=== PATIENT | female | born 1950 | race Caucasian/White ===

== ENCOUNTER 2016-05-19 14:04 | Emergency (ER) | payer OTHER ==
[2016-05-19] MEDS ORDERED: MORPHINE 4 MG/ML 1ML SYRINGE As Ordered ONE (14:34)
[2016-05-19] MEDS ORDERED: ONDANSETRON 4MG/2ML VIAL (J2405) As Ordered ONE (14:34)
[2016-05-19] MEDS ORDERED: KETOROLAC 30 MG/ML VIAL (J1885) As Ordered ONE (14:44)
--- NOTE | 2016-05-19 14:44 | REP ---
Clinical: Renal colic. Findings: Acute moderate right-sided obstructive uropathy with edematous enlargement to the kidney, perinephric stranding, hydroureteronephrosis and periureteral stranding is secondary to a 4 mm calculus at the ureterovesicle junction (images 119 - 120). Few nonobstructing bilateral renal calculi are identified measuring up to approximately 3 mm in the right kidney and 2 mm in the left kidney. Liver, spleen, pancreas, gallbladder, and bilateral adrenal glands are normal for noncontrast evaluation. The enteric system is without obstruction or acute inflammatory process and a normal terminal ileum and appendix is identified in the right lower quadrant. Pelvis demonstrates normal bladder and evidence for prior hysterectomy. The intramuscular lipoma is identified in the left gluteal measuring 8 x 5 x 5 cm. No ascites. No adenopathy. No free air. Abdominal aorta without aneurysm. Osseous structures intact. Lung bases clear. Impression: 1. Acute moderate right-sided obstructive uropathy with a 4 mm calculus at the right ureterovesical junction. Bilateral nonobstructing renal calculi. 2. 8 cm lipoma in the left gluteal region. Signed by Mark Capellan MD 05/19/2016 02:35 P
--- NOTE | 2016-05-19 16:38 | EDDOCDS ---
Nurse's Notes [facility] Name: Razia Feliz Age: 65 yrs Sex: Female : 1950 Arrival Date: 05/19/2016 Time: 14:04 Bed I5 / M5 Private MD: Violet Cade L. Diagnosis: Calculus of lower urinary tract, unspecified-4 mm right UVJ Presentation: 05/19 14:07 Presenting complaint: Patient states: right sided flank pain started at 5pm last night. ttb Sent over from . Denies v/d/ symptoms. Some nausea. Acute neurological deficits are not present. Mechanism of Injury: No Mechanism of Injury. Adult Sepsis Screening: The patient does not have new or worsening altered mentation. Patient's respiratory rate is less than 22. Systolic blood pressure is greater than 100. Patient has a qSOFA score of 0- Negative Sepsis Screen. Suicide/Homicide risk assessment- the patient denies having any suicidal and/or homicidal ideations and does not present with any other emotional, behavioral or mental health complaints. Status: Patient is not a electrical service technician or dependent. Transition of care: patient was not received from another setting of care. 14:07 Acuity: YAYA Level 3 ttb 14:07 Method Of Arrival: Walkin/Carried/Asstd ttb Triage Assessment: 14:11 General: Appears in no apparent distress, well nourished, well groomed, Behavior is ttb appropriate for age, cooperative, pleasant. Pain: Location: right flank 8/10. Pt Declines HIV testing. Neurological: Level of Consciousness is awake, alert. Cardiovascular: Chest pain is denied. Respiratory: No deficits noted. Airway is patent Denies cough, shortness of breath. GI: Reports nausea, Denies vomiting. : Denies burning with urination, urinary frequency, urgency. Derm: Skin is normal. Musculoskeletal: Range of motion intact in all extremities. Historical: - Allergies: No known drug Allergies; - Home Meds: 1. Crestor 10 mg Oral tab 1 tab once daily (Last dose: 05/19/2016 07:00) 2. Tylenol 325 mg Oral tab 2 tabs every 4-6 hours (Last dose: 05/19/2016 10:30) - PMHx: kidney stones approx 10 years ago; Hypercholesterolemia; - PSHx: partial thyroidectomy; Hysterectomy; heel spur surgery; - Social history: Smoking status: Patient states was never smoker of tobacco. Patient uses alcohol on a daily basis. Patient/guardian denies using street drugs, No barriers to communication noted, The patient speaks fluent Guatemalan, Speaks appropriately for age. - Family history: Not pertinent. - : The pt / caregiver states he / she is not on anticoagulants. Home medication list is obtained from the patient. - Exposure Risk Screening:: None identified. Screenin:54 Screening information is obtained from the patient. Fall risk: No risks identified. dy Assistance ADL's: requires no assistance with activities of daily living. Abuse/DV Screen: The patient / caregiver reports he/she is: not in a situation that causes fear, pain or injury. Nutritional screening: No deficits noted. Advance Directives: There is no active DNR order. home support is adequate. Assessment: 14:30 General: Appears uncomfortable, Behavior is appropriate for age, cooperative. dy 14:30 Pain: Location: right flank Pain currently is 8 out of 10 on a pain scale. dy Neurological: No deficits noted. Respiratory: Airway is patent Respiratory effort is even, unlabored, Breath sounds are clear bilaterally. Derm: Skin is pink, warm & dry. 15:15 General: Appears in no apparent distress, comfortable, Behavior is appropriate for age, dy cooperative. Pain: Location: right flank Pain currently is 2 out of 10 on a pain scale. 16:32 Reassessment: Patient appears in no apparent distress at this time. Patient denies pain rs3 at this time. Patient states feeling better. Patient states symptoms have improved. General: Appears in no apparent distress, Behavior is appropriate for age, cooperative. Vital Signs: 14:05 BP 182 / 104; Pulse 89; Resp 16; Temp 97.4(O); Pulse Ox 99% on R/A; Weight 69.4 kg (R); lr2 Height 5 ft. 2 in. (157.48 cm) (R); Pain 8/10; 15:00 Pain 2/10; dy 15:14 BP 149 / 80; Pulse 80; Resp 16; Temp 98.2(O); Pulse Ox 99% on R/A; Pain 2/10; dy 15:15 Pain 2/10; dy 16:36 BP 130 / 78; Pulse 78; Resp 18; Temp 98(T); Pulse Ox 99% on R/A; Pain 0/10; rs3 14:05 Body Mass Index 27.98 (69.40 kg, 157.48 cm) lr2 Vitals: 14:05 Log In Time: May 19, 2016 at 14:04. lr2 ED Course: 14:05 Patient visited by Bryanna Paulino. lr2 14:05 Violet Cade is Private Physician. lr2 14:05 Patient moved to Waiting lr2 14:07 Patient moved to Pre RCE lr2 14:08 Triage Initiated ttb 14:12 Patient moved to Triage 1 ttb 14:16 [facility] cc10 14:16 Manan Renee MD is Attending Physician. cc10 14:16 Patient visited by Cameron Sanchez PA-C. cc10 14:16 Patient visited by Cameron Sanchez PA-C. cc10 14:19 Patient moved to I5 / M5 ar3 14:37 Inserted saline lock: 20 gauge in left antecubital area The patient tolerated the dy procedure well. 14:42 The patient / caregiver is instructed regarding the plan of care and ED course. Patient dy has correct armband on for positive identification. Placed in gown. Bed in low position. Call light in reach. 14:47 CT ABD & PELVIS: No Contrast Returned. EDMS 14:55 Patient visited by Morgan López, RN. dy 15:15 Patient visited by Morgan López, RN. dy 15:32 Jefferson Yañez is Referral Physician. cc10 16:19 [facility] Payment Agreement was scanned into [employer] and attached to record. zo 16:34 Discontinued lock intact, bleeding controlled, pressure dressing applied, No rs3 redness/swelling at site. No procedures done that require assistance. Administered Medications: 14:39 Drug: Ondansetron 4 mg [ondansetron HCl 2 mg/mL intravenous solution (2 mL)] Route: dy IVP; Site: left antecubital; 14:39 Drug: morphine 4 mg [morphine 4 mg/mL intravenous cartridge (1 mL)] Route: IVP; Site: dy left antecubital; 15:00 Follow up: Pain 2/10 Adult; Response: Pain is decreased dy 14:49 Drug: ketorolac 30 mg [ketorolac 30 mg/mL (1 mL) injection solution (1 mL)] Route: IVP; dy Site: left antecubital; 15:15 Follow up: Pain 2/10 Adult; Response: Pain is decreased dy 14:49 Drug: NS 0.9% 1000 ml [sodium chloride 0.9 % injection solution] Route: IV; Rate: dy bolus; Site: left antecubital; 16:32 Follow up: IV Status: Completed infusion rs3 Order Results: Radiology Order: CT ABD & PELVIS: No Contrast Test: CT ABD & PELVIS: No Contrast REASON FOR EXAMINATION: Renal colic; Clinical: Renal colic.; ; Findings:; Acute moderate right-sided obstructive uropathy with edematous enlargement to the; kidney, perinephric stranding, hydroureteronephrosis and periureteral stranding; is secondary to a 4 mm calculus at the ureterovesicle junction (images 119 -; 120). Few nonobstructing bilateral renal calculi are identified measuring up to; approximately 3 mm in the right kidney and 2 mm in the left kidney.; ; Liver, spleen, pancreas, gallbladder, and bilateral adrenal glands are normal for; noncontrast evaluation. The enteric system is without obstruction or acute; inflammatory process and a normal terminal ileum and appendix is identified in; the right lower quadrant. Pelvis demonstrates normal bladder and evidence for; prior hysterectomy. The intramuscular lipoma is identified in the left gluteal; measuring 8 x 5 x 5 cm. No ascites. No adenopathy. No free air. Abdominal; aorta without aneurysm. Osseous structures intact. Lung bases clear.; ; Impression:; 1. Acute moderate right-sided obstructive uropathy with a 4 mm calculus at the; right ureterovesical junction. Bilateral nonobstructing renal calculi.; 2. 8 cm lipoma in the left gluteal region.; ; ; Signed by; Mark Capellan MD 05/19/2016 02:35 P; Outcome: 15:32 Discharge ordered by Provider. cc10 16:33 Discharge Assessment: patient administered narcotics - yes. The following High Risk rs3 Discharge criteria are identified: None. Condition: stable. Discharge instructions given to patient, Instructed on discharge instructions, follow up and referral plans. medication usage, Demonstrated understanding of instructions, medications, Pt was receptive of discharge instructions/ teaching. Prescriptions given X 3. No special radiology studies were completed. Property :Personal belongings accompany Pt. 16:36 Patient left the ED. rs3 Signatures: Dispatcher [employer] EDMS Morgan López, RN RN Lucila Haines Rosemary, RN RN rs3 Lelo Reddy, NUTRITION FACULTY MEMBER NUTRITION FACULTY MEMBER ar3 Rebecca Carrillo RN RN Cameron Kuo PA-C PA-C cc10 Bryanna Paulino2 MTDD
--- NOTE | 2016-05-19 16:38 | EDDOCDS ---
Physician Documentation [facility] Name: Razia Feliz Age: 65 yrs Sex: Female : 1950 Arrival Date: 05/19/2016 Time: 14:04 Bed I5 / M5 Private MD: Violet Cade L. Disposition: 05/19/16 15:32 Discharged to Home/Self Care. Impression: Calculus of lower urinary tract, unspecified - 4 mm right UVJ. - Condition is Stable. - Discharge Instructions: Kidney Stones. - Prescriptions for Naprosyn 500 mg Oral Tablet - take 1 tablet by ORAL route 2 times per day take with food; 30 tablet. Ultram 50 mg Oral Tablet - take 1 tablet by ORAL route every 6 hours As needed MDD: 4 tabs; 20 tablet. ZOFRAN ODT 4 mg - dissolve 1 tablet by ORAL route 4 times per day As needed do not chew, do not swallow whole; 10 tablet. - Medication Reconciliation form. - Follow up: Jefferson Yañez; When: Call to arrange an appointment; Reason: Wound/Symptom Recheck, Recheck today's complaints, Worsening of conditions, Continuance of care. - Problem is an ongoing problem. - Symptoms have improved. Historical: - Allergies: No known drug Allergies; - Home Meds: 1. Crestor 10 mg Oral tab 1 tab once daily (Last dose: 05/19/2016 07:00) 2. Tylenol 325 mg Oral tab 2 tabs every 4-6 hours (Last dose: 05/19/2016 10:30) - PMHx: kidney stones approx 10 years ago; Hypercholesterolemia; - PSHx: partial thyroidectomy; Hysterectomy; heel spur surgery; - Social history: Smoking status: Patient states was never smoker of tobacco. Patient uses alcohol on a daily basis. Patient/guardian denies using street drugs, No barriers to communication noted, The patient speaks fluent Portuguese, Speaks appropriately for age. - Family history: Not pertinent. - : The pt / caregiver states he / she is not on anticoagulants. Home medication list is obtained from the patient. - Exposure Risk Screening:: None identified. Vital Signs: 05/19 14:05 BP 182 / 104; Pulse 89; Resp 16; Temp 97.4(O); Pulse Ox 99% on R/A; Weight 69.4 kg / lr2 153 lbs (R); Height 5 ft. 2 in. (157.48 cm) (R); Pain 8/10; 15:00 Pain 2/10; dy 15:14 BP 149 / 80; Pulse 80; Resp 16; Temp 98.2(O); Pulse Ox 99% on R/A; Pain 2/10; dy 15:15 Pain 2/10; dy 16:36 BP 130 / 78; Pulse 78; Resp 18; Temp 98(T); Pulse Ox 99% on R/A; Pain 0/10; rs3 14:05 Body Mass Index 27.98 (69.40 kg, 157.48 cm) lr2 MDM: 14:20 Undress patient appropriately for examination ordered. cc10 14:21 CT ABD & PELVIS: No Contrast Ordered. EDMS 14:21 NOTHING BY MOUTH+DIET ordered. EDMS 14:27 IV Saline Lock ordered. cc10 14:27 Ondansetron 4 mg IVP once ordered. cc10 14:27 morphine 4 mg IVP once ordered. cc10 14:38 ketorolac 30 mg IVP once ordered. cc10 14:38 NS 0.9% 1000 ml IV at bolus once ordered. cc10 15:31 CT ABD & PELVIS: No Contrast Reviewed. cc10 16:16 Financial registration complete. zo 16:19 [facility] [place] Payment Agreement was scanned into [employer] and attached to record. zo Administered Medications: 14:39 Drug: Ondansetron 4 mg [ondansetron HCl 2 mg/mL intravenous solution (2 mL)] Route: dy IVP; Site: left antecubital; 14:39 Drug: morphine 4 mg [morphine 4 mg/mL intravenous cartridge (1 mL)] Route: IVP; Site: dy left antecubital; 15:00 Follow up: Pain 2/10 Adult; Response: Pain is decreased dy 14:49 Drug: ketorolac 30 mg [ketorolac 30 mg/mL (1 mL) injection solution (1 mL)] Route: IVP; dy Site: left antecubital; 15:15 Follow up: Pain 2/10 Adult; Response: Pain is decreased dy 14:49 Drug: NS 0.9% 1000 ml [sodium chloride 0.9 % injection solution] Route: IV; Rate: dy bolus; Site: left antecubital; 16:32 Follow up: IV Status: Completed infusion rs3 Signatures: Dispatcher [employer] EDLucila Viera Rosemary, RN RN rs3 Rebecca Carrillo RN RN ttb Cameron Sanchez, PA-C PA-C cc10 Morgan López RN dy The chart was reviewed and I authenticate all verbal orders and agree with the evaluation and treatment provided.Corrections: (The following items were deleted from the chart) 15:33 14:52 URINALYSIS+LAB ordered. EDMS EDMS Attachments: 16:19 [facility] Payment Agreement zo MTDD
--- NOTE | 2016-05-21 17:38 | EDDOCDS ---
Physician Documentation [facility] Name: Razia Feliz Age: 65 yrs Sex: Female : 1950 Arrival Date: 05/19/2016 Time: 14:04 Bed I5 / M5 Private MD: Violet Cade L. Disposition: 05/19/16 15:32 Discharged to Home/Self Care. Impression: Calculus of lower urinary tract, unspecified - 4 mm right UVJ. - Condition is Stable. - Discharge Instructions: Kidney Stones. - Prescriptions for Naprosyn 500 mg Oral Tablet - take 1 tablet by ORAL route 2 times per day take with food; 30 tablet. Ultram 50 mg Oral Tablet - take 1 tablet by ORAL route every 6 hours As needed MDD: 4 tabs; 20 tablet. ZOFRAN ODT 4 mg - dissolve 1 tablet by ORAL route 4 times per day As needed do not chew, do not swallow whole; 10 tablet. - Medication Reconciliation form. - Follow up: Jefferson Yañez; When: Call to arrange an appointment; Reason: Wound/Symptom Recheck, Recheck today's complaints, Worsening of conditions, Continuance of care. - Problem is an ongoing problem. - Symptoms have improved. Historical: - Allergies: No known drug Allergies; - Home Meds: 1. Crestor 10 mg Oral tab 1 tab once daily (Last dose: 05/19/2016 07:00) 2. Tylenol 325 mg Oral tab 2 tabs every 4-6 hours (Last dose: 05/19/2016 10:30) - PMHx: kidney stones approx 10 years ago; Hypercholesterolemia; - PSHx: partial thyroidectomy; Hysterectomy; heel spur surgery; - Social history: Smoking status: Patient states was never smoker of tobacco. Patient uses alcohol on a daily basis. Patient/guardian denies using street drugs, No barriers to communication noted, The patient speaks fluent Faroese, Speaks appropriately for age. - Family history: Not pertinent. - : The pt / caregiver states he / she is not on anticoagulants. Home medication list is obtained from the patient. - Exposure Risk Screening:: None identified. Vital Signs: 05/19 14:05 BP 182 / 104; Pulse 89; Resp 16; Temp 97.4(O); Pulse Ox 99% on R/A; Weight 69.4 kg / lr2 153 lbs (R); Height 5 ft. 2 in. (157.48 cm) (R); Pain 8/10; 15:00 Pain 2/10; dy 15:14 BP 149 / 80; Pulse 80; Resp 16; Temp 98.2(O); Pulse Ox 99% on R/A; Pain 2/10; dy 15:15 Pain 2/10; dy 16:36 BP 130 / 78; Pulse 78; Resp 18; Temp 98(T); Pulse Ox 99% on R/A; Pain 0/10; rs3 14:05 Body Mass Index 27.98 (69.40 kg, 157.48 cm) lr2 MDM: 14:20 Undress patient appropriately for examination ordered. cc10 14:21 CT ABD & PELVIS: No Contrast Ordered. EDMS 14:21 NOTHING BY MOUTH+DIET ordered. EDMS 14:27 IV Saline Lock ordered. cc10 14:27 Ondansetron 4 mg IVP once ordered. cc10 14:27 morphine 4 mg IVP once ordered. cc10 14:38 ketorolac 30 mg IVP once ordered. cc10 14:38 NS 0.9% 1000 ml IV at bolus once ordered. cc10 15:31 CT ABD & PELVIS: No Contrast Reviewed. cc10 16:16 Financial registration complete. zo 16:19 [facility] Payment Agreement was scanned into [employer] and attached to record. zo 02 09:51 T-Sheet-- Draft Copy was scanned into [employer] and attached to record. gb Administered Medications: 05/19 14:39 Drug: Ondansetron 4 mg [ondansetron HCl 2 mg/mL intravenous solution (2 mL)] Route: dy IVP; Site: left antecubital; 14:39 Drug: morphine 4 mg [morphine 4 mg/mL intravenous cartridge (1 mL)] Route: IVP; Site: dy left antecubital; 15:00 Follow up: Pain 2/10 Adult; Response: Pain is decreased dy 14:49 Drug: ketorolac 30 mg [ketorolac 30 mg/mL (1 mL) injection solution (1 mL)] Route: IVP; dy Site: left antecubital; 15:15 Follow up: Pain 2/10 Adult; Response: Pain is decreased dy 14:49 Drug: NS 0.9% 1000 ml [sodium chloride 0.9 % injection solution] Route: IV; Rate: dy bolus; Site: left antecubital; 16:32 Follow up: IV Status: Completed infusion rs3 Signatures: Dispatcher [employer] EDMaty Bell, Emil Reg gb Lucila Hernandez Rosemary, RN RN rs3 Rebecca Carrillo RN RN ttb Cameron Sanchez PA-C PADoug cc10 Morgan López RN dy The chart was reviewed and I authenticate all verbal orders and agree with the evaluation and treatment provided.Corrections: (The following items were deleted from the chart) 15:33 14:52 URINALYSIS+LAB ordered. EDMS EDMS Attachments: 16:19 [facility] Agreement zo 05/20 09:51 T-Sheet-- Draft Copy gb Chart Complete MTDD
--- NOTE | 2016-05-21 17:38 | EDDOCDS ---
Nurse's Notes [facility] Name: Razia Feliz Age: 65 yrs Sex: Female : 1950 Arrival Date: 05/19/2016 Time: 14:04 Bed I5 / M5 Private MD: Violet Cade L. Diagnosis: Calculus of lower urinary tract, unspecified-4 mm right UVJ Presentation: 05/19 14:07 Presenting complaint: Patient states: right sided flank pain started at 5pm last night. ttb Sent over from . Denies v/d/ symptoms. Some nausea. Acute neurological deficits are not present. Mechanism of Injury: No Mechanism of Injury. Adult Sepsis Screening: The patient does not have new or worsening altered mentation. Patient's respiratory rate is less than 22. Systolic blood pressure is greater than 100. Patient has a qSOFA score of 0- Negative Sepsis Screen. Suicide/Homicide risk assessment- the patient denies having any suicidal and/or homicidal ideations and does not present with any other emotional, behavioral or mental health complaints. 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 Transition of care: patient was not received from another setting of care. 14:07 Acuity: YAYA Level 3 ttb 14:07 Method Of Arrival: Walkin/Carried/Asstd ttb Triage Assessment: 14:11 General: Appears in no apparent distress, well nourished, well groomed, Behavior is ttb appropriate for age, cooperative, pleasant. Pain: Location: right flank 8/10. Pt Declines HIV testing. Neurological: Level of Consciousness is awake, alert. Cardiovascular: Chest pain is denied. Respiratory: No deficits noted. Airway is patent Denies cough, shortness of breath. GI: Reports nausea, Denies vomiting. : Denies burning with urination, urinary frequency, urgency. Derm: Skin is normal. Musculoskeletal: Range of motion intact in all extremities. Historical: - Allergies: No known drug Allergies; - Home Meds: 1. Crestor 10 mg Oral tab 1 tab once daily (Last dose: 05/19/2016 07:00) 2. Tylenol 325 mg Oral tab 2 tabs every 4-6 hours (Last dose: 05/19/2016 10:30) - PMHx: kidney stones approx 10 years ago; Hypercholesterolemia; - PSHx: partial thyroidectomy; Hysterectomy; heel spur surgery; - Social history: Smoking status: Patient states was never smoker of tobacco. Patient uses alcohol on a daily basis. Patient/guardian denies using street drugs, No barriers to communication noted, The patient speaks fluent Indonesian, Speaks appropriately for age. - Family history: Not pertinent. - : The pt / caregiver states he / she is not on anticoagulants. Home medication list is obtained from the patient. - Exposure Risk Screening:: None identified. Screenin:54 Screening information is obtained from the patient. Fall risk: No risks identified. dy Assistance ADL's: requires no assistance with activities of daily living. Abuse/DV Screen: The patient / caregiver reports he/she is: not in a situation that causes fear, pain or injury. Nutritional screening: No deficits noted. Advance Directives: There is no active DNR order. home support is adequate. Assessment: 14:30 General: Appears uncomfortable, Behavior is appropriate for age, cooperative. dy 14:30 Pain: Location: right flank Pain currently is 8 out of 10 on a pain scale. dy Neurological: No deficits noted. Respiratory: Airway is patent Respiratory effort is even, unlabored, Breath sounds are clear bilaterally. Derm: Skin is pink, warm & dry. 15:15 General: Appears in no apparent distress, comfortable, Behavior is appropriate for age, dy cooperative. Pain: Location: right flank Pain currently is 2 out of 10 on a pain scale. 16:32 Reassessment: Patient appears in no apparent distress at this time. Patient denies pain rs3 at this time. Patient states feeling better. Patient states symptoms have improved. General: Appears in no apparent distress, Behavior is appropriate for age, cooperative. Vital Signs: 14:05 BP 182 / 104; Pulse 89; Resp 16; Temp 97.4(O); Pulse Ox 99% on R/A; Weight 69.4 kg (R); lr2 Height 5 ft. 2 in. (157.48 cm) (R); Pain 8/10; 15:00 Pain 2/10; dy 15:14 BP 149 / 80; Pulse 80; Resp 16; Temp 98.2(O); Pulse Ox 99% on R/A; Pain 2/10; dy 15:15 Pain 2/10; dy 16:36 BP 130 / 78; Pulse 78; Resp 18; Temp 98(T); Pulse Ox 99% on R/A; Pain 0/10; rs3 14:05 Body Mass Index 27.98 (69.40 kg, 157.48 cm) lr2 Vitals: 14:05 Log In Time: May 19, 2016 at 14:04. lr2 ED Course: 14:05 Patient visited by Bryanna Paulino. lr2 14:05 Violet Cade is Private Physician. lr2 14:05 Patient moved to Waiting lr2 14:07 Patient moved to Pre RCE lr2 14:08 Triage Initiated ttb 14:12 Patient moved to Triage 1 ttb 14:16 Cameron [facility] cc10 14:16 Manan Renee MD is Attending Physician. cc10 14:16 Patient visited by Cameron Sanchez PA-C. cc10 14:16 Patient visited by Cameron Sanchez PA-C. cc10 14:19 Patient moved to I5 / M5 ar3 14:37 Inserted saline lock: 20 gauge in left antecubital area The patient tolerated the dy procedure well. 14:42 The patient / caregiver is instructed regarding the plan of care and ED course. Patient dy has correct armband on for positive identification. Placed in gown. Bed in low position. Call light in reach. 14:47 CT ABD & PELVIS: No Contrast Returned. EDMS 14:55 Patient visited by Morgan López, RN. dy 15:15 Patient visited by Morgan López, RN. dy 15:32 Jefferson Yañez is Referral Physician. cc10 16:19 [facility] Payment Agreement was scanned into [employer] and attached to record. zo 16:34 Discontinued lock intact, bleeding controlled, pressure dressing applied, No rs3 redness/swelling at site. No procedures done that require assistance. 05/20 09:51 T-Sheet-- Draft Copy was scanned into [employer] and attached to record. gb Administered Medications: 05/19 14:39 Drug: Ondansetron 4 mg [ondansetron HCl 2 mg/mL intravenous solution (2 mL)] Route: dy IVP; Site: left antecubital; 14:39 Drug: morphine 4 mg [morphine 4 mg/mL intravenous cartridge (1 mL)] Route: IVP; Site: dy left antecubital; 15:00 Follow up: Pain 2/10 Adult; Response: Pain is decreased dy 14:49 Drug: ketorolac 30 mg [ketorolac 30 mg/mL (1 mL) injection solution (1 mL)] Route: IVP; dy Site: left antecubital; 15:15 Follow up: Pain 2/10 Adult; Response: Pain is decreased dy 14:49 Drug: NS 0.9% 1000 ml [sodium chloride 0.9 % injection solution] Route: IV; Rate: dy bolus; Site: left antecubital; 16:32 Follow up: IV Status: Completed infusion rs3 Order Results: Radiology Order: CT ABD & PELVIS: No Contrast Test: CT ABD & PELVIS: No Contrast REASON FOR EXAMINATION: Renal colic; Clinical: Renal colic.; ; Findings:; Acute moderate right-sided obstructive uropathy with edematous enlargement to the; kidney, perinephric stranding, hydroureteronephrosis and periureteral stranding; is secondary to a 4 mm calculus at the ureterovesicle junction (images 119 -; 120). Few nonobstructing bilateral renal calculi are identified measuring up to; approximately 3 mm in the right kidney and 2 mm in the left kidney.; ; Liver, spleen, pancreas, gallbladder, and bilateral adrenal glands are normal for; noncontrast evaluation. The enteric system is without obstruction or acute; inflammatory process and a normal terminal ileum and appendix is identified in; the right lower quadrant. Pelvis demonstrates normal bladder and evidence for; prior hysterectomy. The intramuscular lipoma is identified in the left gluteal; measuring 8 x 5 x 5 cm. No ascites. No adenopathy. No free air. Abdominal; aorta without aneurysm. Osseous structures intact. Lung bases clear.; ; Impression:; 1. Acute moderate right-sided obstructive uropathy with a 4 mm calculus at the; right ureterovesical junction. Bilateral nonobstructing renal calculi.; 2. 8 cm lipoma in the left gluteal region.; ; ; Signed by; Mark Capellan MD 05/19/2016 02:35 P; Outcome: 15:32 Discharge ordered by Provider. cc10 16:33 Discharge Assessment: patient administered narcotics - yes. The following High Risk rs3 Discharge criteria are identified: None. Condition: stable. Discharge instructions given to patient, Instructed on discharge instructions, follow up and referral plans. medication usage, Demonstrated understanding of instructions, medications, Pt was receptive of discharge instructions/ teaching. Prescriptions given X 3. No special radiology studies were completed. Property :Personal belongings accompany Pt. 16:36 Patient left the ED. rs3 Signatures: Dispatcher [employer] EDMS Maty Tran, Reg Reg gb Morgan López, RN RN dy Lucila Hernandez RosemaryRN RN rs3 Lelo Reddy, MICHELE REPLENISHMENT BUYER ar3 Rebecca Carrillo RN RN lulab Cameron Sanchez, PA-C PA-C cc10 Bryanna Paulino lr2 Chart Complete MTDD
--- NOTE | 2016-05-21 17:38 | EDDOCDS ---
Physician Documentation [facility] Name: Razia Feliz Age: 65 yrs Sex: Female : 1950 Arrival Date: 05/19/2016 Time: 14:04 Bed I5 / M5 Private MD: Violet Cade L. Disposition: 05/19/16 15:32 Discharged to Home/Self Care. Impression: Calculus of lower urinary tract, unspecified - 4 mm right UVJ. - Condition is Stable. - Discharge Instructions: Kidney Stones. - Prescriptions for Naprosyn 500 mg Oral Tablet - take 1 tablet by ORAL route 2 times per day take with food; 30 tablet. Ultram 50 mg Oral Tablet - take 1 tablet by ORAL route every 6 hours As needed MDD: 4 tabs; 20 tablet. ZOFRAN ODT 4 mg - dissolve 1 tablet by ORAL route 4 times per day As needed do not chew, do not swallow whole; 10 tablet. - Medication Reconciliation form. - Follow up: Jefferson Yañez; When: Call to arrange an appointment; Reason: Wound/Symptom Recheck, Recheck today's complaints, Worsening of conditions, Continuance of care. - Problem is an ongoing problem. - Symptoms have improved. Historical: - Allergies: No known drug Allergies; - Home Meds: 1. Crestor 10 mg Oral tab 1 tab once daily (Last dose: 05/19/2016 07:00) 2. Tylenol 325 mg Oral tab 2 tabs every 4-6 hours (Last dose: 05/19/2016 10:30) - PMHx: kidney stones approx 10 years ago; Hypercholesterolemia; - PSHx: partial thyroidectomy; Hysterectomy; heel spur surgery; - Social history: Smoking status: Patient states was never smoker of tobacco. Patient uses alcohol on a daily basis. Patient/guardian denies using street drugs, No barriers to communication noted, The patient speaks fluent Macedonian, Speaks appropriately for age. - Family history: Not pertinent. - : The pt / caregiver states he / she is not on anticoagulants. Home medication list is obtained from the patient. - Exposure Risk Screening:: None identified. Vital Signs: 05/19 14:05 BP 182 / 104; Pulse 89; Resp 16; Temp 97.4(O); Pulse Ox 99% on R/A; Weight 69.4 kg / lr2 153 lbs (R); Height 5 ft. 2 in. (157.48 cm) (R); Pain 8/10; 15:00 Pain 2/10; dy 15:14 BP 149 / 80; Pulse 80; Resp 16; Temp 98.2(O); Pulse Ox 99% on R/A; Pain 2/10; dy 15:15 Pain 2/10; dy 16:36 BP 130 / 78; Pulse 78; Resp 18; Temp 98(T); Pulse Ox 99% on R/A; Pain 0/10; rs3 14:05 Body Mass Index 27.98 (69.40 kg, 157.48 cm) lr2 MDM: 14:20 Undress patient appropriately for examination ordered. cc10 14:21 CT ABD & PELVIS: No Contrast Ordered. EDMS 14:21 NOTHING BY MOUTH+DIET ordered. EDMS 14:27 IV Saline Lock ordered. cc10 14:27 Ondansetron 4 mg IVP once ordered. cc10 14:27 morphine 4 mg IVP once ordered. cc10 14:38 ketorolac 30 mg IVP once ordered. cc10 14:38 NS 0.9% 1000 ml IV at bolus once ordered. cc10 15:31 CT ABD & PELVIS: No Contrast Reviewed. cc10 16:16 Financial registration complete. zo 16:19 [facility] Payment Agreement was scanned into [employer] and attached to record. zo 02 09:51 T-Sheet-- Draft Copy was scanned into [employer] and attached to record. gb Administered Medications: 05/19 14:39 Drug: Ondansetron 4 mg [ondansetron HCl 2 mg/mL intravenous solution (2 mL)] Route: dy IVP; Site: left antecubital; 14:39 Drug: morphine 4 mg [morphine 4 mg/mL intravenous cartridge (1 mL)] Route: IVP; Site: dy left antecubital; 15:00 Follow up: Pain 2/10 Adult; Response: Pain is decreased dy 14:49 Drug: ketorolac 30 mg [ketorolac 30 mg/mL (1 mL) injection solution (1 mL)] Route: IVP; dy Site: left antecubital; 15:15 Follow up: Pain 2/10 Adult; Response: Pain is decreased dy 14:49 Drug: NS 0.9% 1000 ml [sodium chloride 0.9 % injection solution] Route: IV; Rate: dy bolus; Site: left antecubital; 16:32 Follow up: IV Status: Completed infusion rs3 Signatures: Dispatcher [employer] EDMaty Bell, Emil Reg gb Lucila Hernandez Rosemary, RN RN rs3 Rebecca Carrillo RN RN ttb Cameron Sanchez PA-C PADoug cc10 Morgan López RN dy The chart was reviewed and I authenticate all verbal orders and agree with the evaluation and treatment provided.Corrections: (The following items were deleted from the chart) 15:33 14:52 URINALYSIS+LAB ordered. EDMS EDMS Attachments: 16:19 [facility] Payment Agreement zo 05/20 09:51 T-Sheet-- Draft Copy gb Chart Complete MTDD
== END 2016-05-19 16:36 | disposition home or self-care (01) ==
LOC: M ED 14:04
DX: D17.1 Benign lipomatous neoplasm of skin and subcutaneous tissue of trunk (principal); N20.1 Calculus of ureter; E78.00 Pure hypercholesterolemia, unspecified; Z87.442 Personal history of urinary calculi; Z90.79 Acquired absence of other genital organ(s); Z90.89 Acquired absence of other organs; Z79.899 Other long term (current) drug therapy
CPT/HCPCS: 74176; 96361; 96374; 96375; 99284; J1885; J2405

== ENCOUNTER → 2016-05-19 | Outpatient (CLI) | payer OTHER ==
--- NOTE | 2016-05-19 10:39 | REP ---
Clinical: Lower abdominal pain. Technique: Single supine view of the abdomen and pelvis. Findings: Bowel gas pattern is nonspecific. No obvious organomegaly. Small calcification in the right kye pelvis likely phleboliths although ureteral calculus cannot be excluded. Impression: Nonspecific bowel gas pattern. Irregular 3 mm phlebolith versus distal right ureteral calculus. Signed by Mark Capellan MD 05/19/2016 10:31 A
[2016-05-19 11:40] LABS: MEAN CORPUSCULAR HEMOGLOBIN 31.4 pg (27.0-33.0); MEAN CORPUSCULAR HGB CONC 33.4 g/dl (32.0-36.5); RED CELL DISTRIBUTION WIDTH 12.8 % (11.5-14.5); WHITE BLOOD COUNT 14.4 K/mm3 (4.0-10.0)
[2016-05-19 12:07] LABS: ALBUMIN 4.9 GM/DL (3.2-5.2); ALBUMIN/GLOBULIN RATIO 1.58 (1.00-1.93); BILIRUBIN,TOTAL 0.6 MG/DL (0.2-1.0); CALCIUM LEVEL 9.6 MG/DL (8.8-10.2); CREATININE FOR GFR 1.21 MG/DL (0.55-1.02); GLOMERULAR FILTRATION RATE 47.8 (>45); POTASSIUM SERUM 4.4 MEQ/L (3.5-5.1)
[2016-05-19 12:09] LABS: BANDS 1 % (< 11); BASOPHILS 1 % (0-4)
[2016-05-19 12:10] LABS: ANISOCYTOSIS 1+
== END ==
LOC: M WUC 09:53
PROVIDERS: ATTEND Physician Assistant
DX: R10.30 Lower abdominal pain, unspecified (principal)

== ENCOUNTER → 2016-12-12 | Outpatient (CLI) | payer OTHER ==
[2016-12-12 15:04] LABS: ALBUMIN/GLOBULIN RATIO 1.21 (1.00-1.93); ALKALINE PHOSPHATASE 109 U/L (45-117); ALT/SGPT 46 U/L (12-78); ANION GAP 6 MEQ/L (8-16); AST/SGOT 29 U/L (15-37); BILIRUBIN,TOTAL 0.4 MG/DL (0.2-1.0); BLOOD UREA NITROGEN 16 MG/DL (7-18); CALCIUM LEVEL 8.8 MG/DL (8.8-10.2); CARBON DIOXIDE LEVEL 27 MEQ/L (21-32); CHLORIDE LEVEL 108 MEQ/L (98-107); CHOLESTEROL LEVEL 225 MG/DL (<200); CREATININE FOR GFR 0.87 MG/DL (0.55-1.02); FREE T4 0.88 NG/DL (0.76-1.46); GLOMERULAR FILTRATION RATE > 60.0 (>45); GLUCOSE, FASTING 92 MG/DL (80-110); POTASSIUM SERUM 4.7 MEQ/L (3.5-5.1); SODIUM LEVEL 141 MEQ/L (136-145); TOTAL PROTEIN 7.3 GM/DL (6.4-8.2); TRIGLYCERIDES LEVEL 251 MG/DL (<150)
== END ==
LOC: M WUC 09:09
PROVIDERS: ATTEND Nurse Practitioner Adult Health
DX: E78.2 Mixed hyperlipidemia (principal); E04.1 Nontoxic single thyroid nodule; E55.9 Vitamin D deficiency, unspecified

== ENCOUNTER → 2017-02-05 | Outpatient (CLI) | payer OTHER | LOC: M LAB 10:20 | PROVIDERS: ATTEND Internal Medicine Gastroenterology | DX: K58.0 Irritable bowel syndrome with diarrhea (principal) ==

== ENCOUNTER → 2017-02-06 | Outpatient (REF) | payer OTHER | LOC: M LAB REF 10:06 | PROVIDERS: ATTEND Internal Medicine Gastroenterology | DX: K58.0 Irritable bowel syndrome with diarrhea (principal) ==

== ENCOUNTER 2017-02-24 08:40 | Day surgery (SDC) | payer OTHER ==
[~2017-02-24] VITALS: Ht 157.5 cm; Wt 71.7 kg
[~2017-02-24 08:40] MED LIST: 5-HT1CAP PO; ASPI1TAB PO; BIOT50004 PO; BUPR150T3 PO; LIDOCAINE 2% INJ 100 MG/5 ML SDV (FOR ANES.) As Ordered ONE; MOVE1TAB PO; PROPOFOL 200 MG/20 ML VIAL As Ordered ONE; ROSU10TA2 PO; VITA500046 PO; [UNRECOGNIZED DRUG - CODE] PO
[2017-02-24] MEDS ORDERED: NS 1,000 ML IV ONE (08:45)
--- NOTE | 2017-02-24 09:51 | ROOR ---
Patient Name: Razia Feliz Procedure Date: 02/24/2017 9:33 AM Date of : 1950 Age: 66 Room: [facility] Gender: Female Note Status: Finalized Procedure: Colonoscopy Indications: Irritable bowel syndrome with diarrhea Providers: Morgan PALMER MD Referring MD: Violet Cade NP Requesting Provider: Medicines: Monitored Anesthesia Care Complications: No immediate complications. Procedure: Pre-Anesthesia Assessment: - The heart rate, respiratory rate, oxygen saturations, blood pressure, adequacy of pulmonary ventilation, and response to care were monitored throughout the procedure. The Colonoscope was introduced through the anus and advanced to 5 cm into the ileum. The colonoscopy was performed without difficulty. The patient tolerated the procedure well. The quality of the bowel preparation was good. Findings: The perianal and digital rectal examinations were normal. The colon (entire examined portion) appeared normal. The terminal ileum appeared normal. Small Internal Hemorrhoids. Biopsies for histology were taken with a cold forceps from the entire colon for evaluation of microscopic colitis. Impression: - The entire colon is normal. - The examined portion of the ileum was normal. - Small Internal Hemorrhoids. - Biopsies were taken with a cold forceps from the entire colon for evaluation of microscopic colitis. - (Irritable Bowel Syndrome/IBS suspected.) Recommendation: - Continue present medications. - Your stool fat content was elevated suggestive of possible excessive small bowel bacteria. I will treat you with Xifaxan for 14 days for Irritable bowel syndrome/Small bowel bacterial overgrowth. - (the script was sent to your pharmacy on file) - Telephone endoscopist for pathology results in 2 weeks. Morgan Palmer MD Morgan PALMER MD 02/24/2017 9:51:27 AM This report has been signed electronically. Number of Addenda: 0 Note Initiated On: 02/24/2017 9:33 AM Estimated Blood Loss: Estimated blood loss: none.
[2017-02-24 10:15] VITALS: BP 162/90
== END 2017-02-24 10:30 | disposition home or self-care (01) ==
LOC: M OPP 08:40
PROVIDERS: ATTEND Internal Medicine Gastroenterology
DX: K58.0 Irritable bowel syndrome with diarrhea (principal); K64.8 Other hemorrhoids; E78.5 Hyperlipidemia, unspecified; Z79.82 Long term (current) use of aspirin; Z79.899 Other long term (current) drug therapy

== ENCOUNTER → 2017-10-09 | Outpatient (CLI) | payer MEDICARE, OTHER ==
[2017-10-09 10:48] LABS: HEMATOCRIT 44.9 % (36.0-47.0); HEMOGLOBIN 14.9 g/dl (12.0-15.5); MEAN CORPUSCULAR HEMOGLOBIN 31.2 pg (27.0-33.0); MEAN CORPUSCULAR HGB CONC 33.2 g/dl (32.0-36.5); MEAN CORPUSCULAR VOLUME 94.1 fl (80.0-96.0); PLATELET COUNT, AUTOMATED 215 10^3/uL (150-450); RED BLOOD COUNT 4.77 10^6/uL (4.00-5.40); RED CELL DISTRIBUTION WIDTH 13.1 % (11.5-14.5); WHITE BLOOD COUNT 6.7 10^3/uL (4.0-10.0)
[2017-10-09 11:23] LABS: TOTAL 25(OH) VITAMIN D 57.7 NG/ML (30.0-100.0)
[2017-10-09 11:27] LABS: ALBUMIN 4.1 GM/DL (3.2-5.2); ALBUMIN/GLOBULIN RATIO 1.21 (1.00-1.93); ALKALINE PHOSPHATASE 86 U/L (45-117); ALT/SGPT 42 U/L (12-78); ANION GAP 8 MEQ/L (8-16); AST/SGOT 26 U/L (7-37); BILIRUBIN,TOTAL 0.5 MG/DL (0.2-1.0); BLOOD UREA NITROGEN 21 MG/DL (7-18); CARBON DIOXIDE LEVEL 28 MEQ/L (21-32); CHLORIDE LEVEL 109 MEQ/L (98-107); CHOLESTEROL LEVEL 195 MG/DL (<200); CHOLESTEROL RISK RATIO 2.635 (<5); CREATININE FOR GFR 0.89 MG/DL (0.55-1.30); GLOMERULAR FILTRATION RATE > 60.0 (>45); GLUCOSE, FASTING 86 MG/DL (70-100); HDL CHOLESTEROL 74 MG/DL (>40); LDL CHOLESTEROL 85.2 MG/DL (<100); NON-HDL-C 121 MG/DL; POTASSIUM SERUM 4.7 MEQ/L (3.5-5.1); SODIUM LEVEL 145 MEQ/L (136-145); TOTAL PROTEIN 7.5 GM/DL (6.4-8.2); TRIGLYCERIDES LEVEL 179 MG/DL (<150)
== END ==
LOC: M WUC 08:44
DX: Z00.00 Encounter for general adult medical examination without abnormal findings (principal); E78.2 Mixed hyperlipidemia; E04.1 Nontoxic single thyroid nodule; E55.9 Vitamin D deficiency, unspecified
CPT/HCPCS: 84443

== ENCOUNTER → 2019-08-13 | Outpatient (REF) | payer MEDICARE, OTHER ==
[~2019-08-13] MED LIST changes: -ASPI1TAB PO; +ASPI81TA26 PO; -LIDOCAINE 2% INJ 100 MG/5 ML SDV (FOR ANES.) As Ordered ONE; -PROPOFOL 200 MG/20 ML VIAL As Ordered ONE; -ROSU10TA2 PO; +ROSU10TA6 PO
[2019-08-15 00:06] LABS: Lyme Disease IgG/IgM Antibodie <0.91 ISR (0.00-0.90); Lyme Disease IgM Ab Quantitati <0.80 index (0.00-0.79)
== END ==
LOC: M SFHCLERA 08:47
PROVIDERS: ATTEND Family Medicine
DX: G57.32 Lesion of lateral popliteal nerve, left lower limb (principal)
CPT/HCPCS: 36415; 86617; G0463

== ENCOUNTER → 2020-09-13 | Outpatient (CLI) | payer MEDICARE, OTHER ==
[~2020-09-13] MED LIST changes: +BUPR150T12 PO; -BUPR150T3 PO
--- NOTE | 2020-09-13 13:05 | REP ---
INDICATION: NONTOXIC UNINODULAR GOITER. COMPARISON: None. TECHNIQUE: Real-time sonographic evaluation of right lobe of thyroid performed. The patient has had a left thyroidectomy. FINDINGS: The right lobe of the thyroid measures 4.6 x 2.7 x 1.7 cm. Multiple heterogeneous nodules are seen throughout the right lobe of the thyroid. The largest is in the mid aspect 1.3 x 0.8 x 0.9 cm. There is an adjacent nodule measuring 9 x 6 x 5 mm. A nodule in the right lower pole measures 10 x 7 x 9 mm and another measures 8 x 7 x 9 mm. Multiple other smaller, subcentimeter nodules are seen throughout the thyroid. IMPRESSION: Multiple relatively small nodules throughout the right lobe of the thyroid. The largest measures 1.3 x 0.8 x 0.9 cm. According to TI-RADS criteria no follow-up is required. <Electronically signed by See Briggs > 09/13/20 [id number]
== END ==
LOC: M RAD 11:38
PROVIDERS: ATTEND Nurse Practitioner Adult Health
DX: E04.1 Nontoxic single thyroid nodule (principal)

== ENCOUNTER → 2020-10-17 | Outpatient (CLI) | payer MEDICARE, OTHER ==
[~2020-10-17] MED LIST changes: +CLAR10CA3 PO
== END ==
LOC: M PLAIMG 09:00
PROVIDERS: ATTEND Nurse Practitioner Adult Health
DX: M25.562 Pain in left knee (principal)
CPT/HCPCS: 73564; G0463

== ENCOUNTER → 2020-12-15 | Outpatient (CLI) | payer MEDICARE, OTHER ==
[2020-12-15 07:44] LABS: BASO # 0.1 10^3/uL (0.0-0.2); BASO % 1.9 % (0.0-1.0); EOS # 0.3 10^3/uL (0.0-0.5); EOS % 3.9 % (0.0-3.0); HEMATOCRIT 44.1 % (36.0-47.0); HEMOGLOBIN 14.6 g/dl (12.0-15.5); LYMPH # 2.1 10^3/uL (1.5-5.0); LYMPH % 32.8 % (24.0-44.0); MEAN CORPUSCULAR HEMOGLOBIN 31.5 pg (27.0-33.0); MEAN CORPUSCULAR HGB CONC 33.1 g/dl (32.0-36.5); MEAN CORPUSCULAR VOLUME 95.2 fl (80.0-96.0); MONO # 0.4 10^3/uL (0.0-0.8); MONO % 6.1 % (2.0-8.0); NEUTROPHILS # 3.5 10^3/uL (1.5-8.5); PLATELET COUNT, AUTOMATED 254 10^3/uL (150-450); RED BLOOD COUNT 4.63 10^6/uL (4.00-5.40); WHITE BLOOD COUNT 6.4 10^3/uL (4.0-10.0)
[2020-12-15 09:12] LABS: ALBUMIN 4.1 GM/DL (3.2-5.2); ALT/SGPT 38 U/L (12-78); BILIRUBIN,TOTAL 0.5 MG/DL (0.2-1.0); BLOOD UREA NITROGEN 16 MG/DL (7-18); CALCIUM LEVEL 9.2 MG/DL (8.8-10.2); CARBON DIOXIDE LEVEL 29 MEQ/L (21-32); CHLORIDE LEVEL 109 MEQ/L (98-107); CREATININE FOR GFR 0.93 MG/DL (0.55-1.30); GLOMERULAR FILTRATION RATE > 60.0 (>45); GLUCOSE, FASTING 88 MG/DL (70-100); POTASSIUM SERUM 4.6 MEQ/L (3.5-5.1); SODIUM LEVEL 143 MEQ/L (136-145); TOTAL PROTEIN 7.4 GM/DL (6.4-8.2)
--- NOTE | 2020-12-15 13:27 | ECGEPIP ---
[facility] Test Date: 2020-12-15 Pat Name: MATTHEW VOGT Department: Room: - Gender: Female Collision Worker: mallory : 1950 Requested By: Will Gomez Order Number: [id number] Reading MD: Karla Salmeron Measurements Intervals [place] Rate: 71 P: 63 GA: 182 QRS: 17 QRSD: 92 T: 27 QT: 422 QTc: 458 Interpretive Statements Normal sinus rhythm LAE Low voltage QRS Incomplete right bundle branch block ST TW ABN NO PRIOR Electronically Signed on 12-15-2020 13:26:50 EDT by Karla Salmeron
== END ==
LOC: M LAB 07:04
PROVIDERS: ATTEND Podiatrist
DX: Z01.818 Encounter for other preprocedural examination (principal)

== ENCOUNTER → 2020-12-18 | Outpatient (CLI) | payer MEDICARE, OTHER | LOC: M LABSMTC 10:41 | PROVIDERS: ATTEND Anesthesiology | DX: Z01.812 Encounter for preprocedural laboratory examination (principal); Z20.822 Contact with and (suspected) exposure to COVID-19 ==

== ENCOUNTER 2020-12-22 07:21 | Day surgery (SDC) | payer MEDICARE, OTHER ==
[~2020-12-22] VITALS: Ht 157.5 cm; Wt 68.4 kg
[~2020-12-22 07:21] MED LIST changes: +LR 1,000 ML IV ONE; +ceFAZolin SOD 2 GM in IV 1 EA IV ONE
[2020-12-22] MEDS ORDERED: propofoL 500 MG/50 ML VIAL As Ordered ONE (08:03)
[2020-12-22] MEDS ORDERED: fentaNYL 100 MCG/2 ML INJECTION (J3010) As Ordered ONE (08:03)
[2020-12-22] MEDS ORDERED: LIDOCAINE 2% 100MG/5ML SDV (FOR ANES.) As Ordered ONE (08:03)
[2020-12-22] MEDS ORDERED: MIDAZOLAM INJ 2MG/2ML VIAL (J2250 PER 1MG) As Ordered ONE (08:04)
[2020-12-22] MEDS ORDERED: LIDOCAINE 1% SDV 30ML VIAL As Ordered ONE (08:14)
[2020-12-22] MEDS ORDERED: GENTAMICIN SULF 80MG/2ML VIAL As Ordered ONE (08:14)
[2020-12-22] MEDS ORDERED: dexameTHASONE 4 MG/ML 1ML VIAL (J1100 PER 1MG) As Ordered ONE ×2 (08:14→09:14)
[2020-12-22] MEDS ORDERED: BUPIVACAINE HCL 0.5% 30 ML VIAL As Ordered ONE (08:14)
[2020-12-22] MEDS ORDERED: LIDOCAINE 2% MDV 20ML VIAL As Ordered ONE (08:37)
[2020-12-22] MEDS ORDERED: ONDANSETRON 4MG/2ML VIAL As Ordered ONE (09:14)
[2020-12-22] MEDS ORDERED: KETOROLAC 60MG 2ML VIAL As Ordered ONE (09:14)
[2020-12-22] MEDS ORDERED: METOCLOPRAMIDE INJ 10MG/2ML VIAL (J2765 PER 1) As Ordered ONE (09:37)
[2020-12-22] MEDS ORDERED: LR 1,000 ML IV SCH (10:15)
[2020-12-22] MEDS ORDERED: oxyCODONE 5MG TAB PO PRN (10:15)
[2020-12-22] MEDS ORDERED: ONDANSETRON 4MG/2ML VIAL IV PRN (10:15)
[2020-12-22 10:30] VITALS: BP 132/77
--- NOTE | 2020-12-22 11:36 | RO ---
OPERATIVE NOTE DATE OF OPERATION: 12/22/2020 PREOPERATIVE DIAGNOSIS: Lipoma dorsolateral aspect left foot and ankle. POSTOPERATIVE DIAGNOSIS: Lipoma dorsolateral aspect left foot and ankle. PROCEDURE: Excision of lipoma left ankle SURGEON: Will Michel DPM. FACE MAN: None. ANESTHESIA: Local MAC. IRRIGATION: Dilute gentamicin solution. HEMOSTASIS: Ankle pneumatic tourniquet at 200 mmHg for 23 minutes. HARDWARE UTILIZED: None. DESCRIPTION OF OPERATION: On 12/22/2020, this 70-year-old female was taken from the hospital room to the operating room and placed on the operating table in the supine position. Following induction of IV sedation and local monitored anesthesia, the left lower extremity was prepped and draped in the usual aseptic manner. Attention was directed to the patient's left foot where the intermediate dorsal cutaneous nerve was palpated under the skin. Also noted was a lipoma on the dorsolateral aspect of the foot. An incision was made approximately 7-8 mm in a more lateral position than the intermediate dorsal cutaneous nerve. The incision was made through the subcutaneous tissues down to the lipoma. All coursing venous tributaries were identified, underscored, ligated, and electrocoagulated as necessary. Dissection was then carried in a medial direction until the intermediate dorsal cutaneous nerve was found. It was gently freed utilizing dissection scissors away from the lipoma and then retracted in a dorsal and lateral direction where attention was then directed now to the lipoma, and the lipoma was meticulously dissected from the surrounding soft tissue. It was noted to be well encapsulated. Dissection was then carried down to its pedicle stalk. This area was then clamped, and a tie was placed through the stalk and then electrocautery was used on the distal side to free the mass from the foot. Additional tie was then utilized utilizing 3-0 Dexon in a simple interrupted type fashion. The wound was flushed with copious amounts of dilute bacitracin, Gentamicin, and Polymyxin B solution. No remaining lipoma was noted. The subcutaneous tissues were coapted and maintained with 4-0 Monocryl. The tourniquet was released to check for any additional bleeders, none were found. Skin was closed with 4-0 Prolene in a simple interrupted type fashion. Compressive dressing was applied consisting of Adaptic, 4 x 4's, 4 x 4 splints, Kerlix, and Coban. Patient apparently having tolerated the procedure well and was taken from the OR to the recovery room for further monitoring by the Anesthesia Department. Instantaneous capillary filling time was noted to digits 1 through 5 of the patient's left foot. Patient had apparently tolerated the procedure well and was taken from the OR to the recovery room for further monitoring by the Anesthesia Department. Postop instructions given upon discharge. DESHAWN
== END 2020-12-22 11:12 | disposition home or self-care (01) ==
LOC: M SDC 07:21
PROVIDERS: ATTEND Podiatrist
DX: D17.39 Benign lipomatous neoplasm of skin and subcutaneous tissue of other sites (principal); M54.9 Dorsalgia, unspecified; G62.9 Polyneuropathy, unspecified; E78.00 Pure hypercholesterolemia, unspecified; K58.9 Irritable bowel syndrome, unspecified; Z79.899 Other long term (current) drug therapy; Z79.891 Long term (current) use of opiate analgesic; Z79.82 Long term (current) use of aspirin; Z91.011 Allergy to milk products
CPT/HCPCS: 28039; 88304; J0690; J1100; J1580; J1885; J2250; J2405; J2765; J3010

== ENCOUNTER → 2021-11-28 | Outpatient (REF) | payer MEDICARE, OTHER ==
[~2021-11-28] MED LIST changes: -LR 1,000 ML IV ONE; -ceFAZolin SOD 2 GM in IV 1 EA IV ONE
== END ==
LOC: M LAB REF 11:12
PROVIDERS: ATTEND Internal Medicine Gastroenterology
DX: K58.0 Irritable bowel syndrome with diarrhea (principal); Z79.82 Long term (current) use of aspirin

== ENCOUNTER → 2021-12-13 | Outpatient (CLI) | payer MEDICARE, OTHER ==
[~2021-12-13] MED LIST changes: +CHRO1000 PO; +DICY10CA13; +NIAC100T9 PO; +VITA100093 PO
== END ==
LOC: M LABSMTC 11:06
PROVIDERS: ATTEND Anesthesiology
DX: Z01.818 Encounter for other preprocedural examination (principal); Z11.52 Encounter for screening for COVID-19

== ENCOUNTER → 2021-12-18 | Day surgery (SDC) | payer MEDICARE, OTHER ==
[~2021-12-18] VITALS: Ht 157.5 cm; Wt 67.5 kg
[~2021-12-18] MED LIST changes: +LIDOCAINE 2% 100MG/5ML SDV (FOR ANES.) As Ordered ONE; +NS 1,000 ML IV ONE; +propofoL 200 MG/20 ML VIAL As Ordered ONE
[2021-12-18 10:55] VITALS: BP 135/80
== END | disposition home or self-care (01) ==
LOC: M OPP 08:49
PROVIDERS: ATTEND Internal Medicine Gastroenterology
DX: K58.0 Irritable bowel syndrome with diarrhea (principal); K64.4 Residual hemorrhoidal skin tags; Z79.02 Long term (current) use of antithrombotics/antiplatelets; Z79.899 Other long term (current) drug therapy; Z91.011 Allergy to milk products; E78.00 Pure hypercholesterolemia, unspecified; G57.82 Other specified mononeuropathies of left lower limb; F41.9 Anxiety disorder, unspecified; Z90.89 Acquired absence of other organs